=== PATIENT | male | born 1940 | race Caucasian/White ===

== ENCOUNTER 2019-10-02 08:50 | Emergency (ER) | payer OTHER ==
[2019-10-02 09:03] VITALS: BMI 23.7
[2019-10-02] MEDS ORDERED: DEXTROSE 50%-WATER - 25 GM/50 ML VIAL ONE (09:12)
[2019-10-02] MEDS ORDERED: EPINEPHrine 1:10,000 (P-F SYR) 1 MG/10 ML DISP.SYRIN ONE (09:13)
[2019-10-02] MEDS ORDERED: SODIUM BICARBONATE 4.2% 5 MEQ/10 ML DISP.SYRIN IVPUSH ONE ×2 (09:13→10:02)
[2019-10-02] MEDS ORDERED: CALCIUM CHLORIDE 1 GM/10 ML *DISP.SYRIN ONE ×2 (09:13→09:53)
[2019-10-02] MEDS ORDERED: NOREPINEPHRINE BITARTRATE 4,000 MCG in DEXTROSE 5%-WATER - 496 ML IV SCH (09:15)
[2019-10-02] MEDS ORDERED: SODIUM BICARBONATE 8.4% 50 MEQ/50 ML DISP.SYRIN IV ONE (09:19)
[2019-10-02] MEDS ORDERED: NOREPINEPHRINE BITARTRATE 4 MG/4 ML ML IV ONE (09:24)
[2019-10-02] MEDS ORDERED: SODIUM BICARBONATE 8.4% - 50 ML ONE (09:24)
[2019-10-02] MEDS ORDERED: SODIUM CHLORIDE 0.45% 1,000 ML with SODIUM BICARBONATE 8.4% - 50 MEQ IV SCH (09:30)
[2019-10-02] MEDS ORDERED: SODIUM BICARBONATE 8.4% 50 MEQ/50 ML VIAL ONE (10:02)
[2019-10-02 10:13] VITALS: TEMP 91.1
--- NOTE | 2019-10-02 10:17 | PDOC ---
History of Present Illness - General Chief Complaint: Cardiac Arrest Stated Complaint: Cardiac Arrest Time Seen by Provider: 10/02/19 09:18 History Source: EMS, Old Records Exam Limitations: Clinical Condition, Intubated, Unresponsive - History of Present Illness Initial Comments: 10/02/19 09:39 79yo M pmh ESRD, BIBEMS from [facility] in cardiac arrest. Patient found down in asystole, unknown duration, coded for 10 minutes by EMS with 3 Epi, 2 Bicarb, 2 Calcium given, ROSC with wide-complex bradycardia for 20 minutes until pulses lost, additional 10min compressions and 1 additional EPI before arrival. BGM 58 in the field, D10 administered in route, BGM 70 on arrival. Additional Epi, bicarb, and calcium given, airway conformed by Drs. Johnson and Desiree, pulses returned at first pulse check with regular narrow complex with intermittent runs of wide-complex tachycardia, central access in progress, patient with dark stool on rectal temp, FOBT sent. Patient unable to provide history due to clinical condition. Per [facility] paperwork, [facility] ESRD, Afib (on Eliquis), HTN, HLD, DM2, GERD, Epilepsy, Hypothyroidism, prostate cancer, AMS. Past History - Medical History Allergies/Adverse Reactions: Allergies Allergy/AdvReac Type Severity Reaction Status Date / Time No Known Allergies Allergy Verified 10/02/19 09:00 Cancer: Yes (neoplasm prostate) Cardiac Disorders: Yes (a fib) COPD: No Dementia: No (altered mental status) Diabetes: Yes GI Disorders: Yes (gerd) Disorders: Yes (end stage renal failure) HTN: Yes Seizures: Yes (epilepsy) Thyroid Disease: Yes - Psycho-Social/Smoking History Smoking History: Unknown if ever smoked Review of Systems - Review of Systems Able to Perform ROS?: No (Cardiac arrest) *Physical Exam - Vital Signs Last Vital Signs Temp Pulse Resp BP Pulse Ox 15 0/0 L 10/02/19 09:11 10/02/19 08:52 - Physical Exam 10/02/19 10:26 Elderly man, presenting in cardiac arrest, arrived with AR providing compression, unresponsive, intubated NCAT, PERRL, intubated, normal morphologies No pulses, pale, tunneled dialysis catheter in right chest Bilateral breath / vent sounds, symmetric chest rise Abdomen soft, no guarding, soft, non-distended, suprapubic catheter in place draining yellow urine No peripheral edema, no distal pulses Pale skin, no rash apparent, normal genitalia, dark stool apparent on rectal temp Unable to assess MSE, patient unresponsive, unable to cooperate with further exam - no sedation at present ED Treatment Course - LABORATORY CBC & Chemistry Diagram: 10/02/19 10:00 10/02/19 09:32 - RADIOLOGY Radiology Studies Ordered: Category Date Time Status CHEST X-RAY PORTABLE* [RAD] Stat Radiology 10/02/19 09:22 Ordered Medical Decision Making - Critical Care Time Total Critical Care Time (minutes): 140 Critical Care Statement: The care of this patient involved high complexity decision making to prevent further life threatening deterioration of the patient's condition and/or to evaluate & treat vital organ system(s) failure or risk of failure. - Medical Decision Making 10/02/19 11:30 79yo M PMH ESRD, Afib (on Eliquis), BIBEMS from [facility] in cardiac arrest, 20min ROSC in route, 20min CPR with unknown preceding downtime before arrival. EKG concerning for possible inferior / posterior infarct, patient not hemodynamically stable, intubated, with several pulse losses shortly after arrival. Found to have intermittent afib vs wide-complex tachycardia with reported wide-complex bradycardia prior to arrival, dark stool and pale skin concerning for GIB. Suspected metabolic / electrolyte cause in this patient with ESRD, likely acidosis / hyperkalemia vs primary cardiac etiology. - S/p multiple rounds of epi, calcium, bicarb - Levophed drip, bicarb drip - Central line L groin - ET checked, in place - Labs sent - FOBT - EKG with narrow complex QRS, irregular, afib, PVCs, During third arrest, shocks delivered x3 for ventricular tachycardia rhythm, once with bigeminy ROSC again achieved, calcium and bicarbonate appear to have the most profound effect, bicarb drip running with levophed 10/02/19 11:44 - Following discussion with daughter, patient now DNR, does not desire chest tube for R-sided pneumothorax, continuing drips - DNR documented in the chart Laboratory Tests 10/02/19 10/02/19 10/02/19 09:13 09:32 09:32 WBC RBC Hgb Hct MCV MCH MCHC RDW Plt Count MPV Absolute Neuts (auto) Neutrophils % Neutrophils % (Manual) Band Neutrophils % Lymphocytes % Lymphocytes % (Manual) Monocytes % Monocytes % (Manual) Eosinophils % Eosinophils % (Manual) Basophils % Basophils % (Manual) Myelocytes % (Man) Promyelocytes % (Man) Blast Cells % (Manual) Nucleated RBC % Metamyelocytes Hypochromia Platelet Estimate Platelet Comment Polychromasia Poikilocytosis Anisocytosis Microcytosis Macrocytosis Ovalocytes Acanthocytes (Spur) PT with INR INR PTT (Actin FS) VBG pH POC VBG pCO2 POC VBG pO2 VBG HCO3 VBG O2 Sat (Alan) VBG Base Excess Sodium 141 Potassium 6.7 H* Chloride 98 Carbon Dioxide 8 L Anion Gap 35 H BUN 75.9 H Creatinine 7.9 H* Est GFR (CKD-EPI)AfAm 6.84 Est GFR (CKD-EPI)NonAf 5.90 POC Glucometer Random Glucose 80 Lactic Acid > 15.0 H* Calcium 14.9 H* Total Bilirubin 1.0 AST 09893 H ALT 4743 H Alkaline Phosphatase 173 H Creatine Kinase 986 H Creatine Kinase Index 1.2 CK-MB (CK-2) 12.6 H Troponin I 2.25 H* Total Protein 4.8 L Albumin 1.6 L Stool Occult Blood Positive Blood Type Antibody Screen Crossmatch 10/02/19 10/02/19 10/02/19 10:00 10:00 10:00 WBC 27.6 H RBC 2.38 L Hgb 5.6 L* Hct 21.9 L MCV 92.1 MCH 23.5 L MCHC 25.5 L RDW 18.3 H Plt Count 357 MPV 11.7 H Absolute Neuts (auto) 21.8 H Neutrophils % 78.8 Neutrophils % (Manual) 72.3 Band Neutrophils % 4.9 Lymphocytes % 15.4 Lymphocytes % (Manual) 15.8 Monocytes % 4.5 Monocytes % (Manual) 1 L Eosinophils % 0.3 Eosinophils % (Manual) 0.0 Basophils % 1.0 Basophils % (Manual) 0.0 Myelocytes % (Man) 2 Promyelocytes % (Man) 0 Blast Cells % (Manual) 0 Nucleated RBC % 2 H Metamyelocytes 4 H Hypochromia 0 Platelet Estimate Normal Platelet Comment Present Polychromasia 2+ Poikilocytosis 2+ Anisocytosis 2+ Microcytosis 0 Macrocytosis 2+ Ovalocytes 1+ Acanthocytes (Spur) 2+ PT with INR 47.40 H INR 3.96 H PTT (Actin FS) 41.0 H VBG pH POC VBG pCO2 POC VBG pO2 VBG HCO3 VBG O2 Sat (Alan) VBG Base Excess Sodium Potassium Chloride Carbon Dioxide Anion Gap BUN Creatinine Est GFR (CKD-EPI)AfAm Est GFR (CKD-EPI)NonAf POC Glucometer Random Glucose Lactic Acid Calcium Total Bilirubin AST ALT Alkaline Phosphatase Creatine Kinase Creatine Kinase Index CK-MB (CK-2) Troponin I Total Protein Albumin Stool Occult Blood Blood Type O POSITIVE Antibody Screen Negative Crossmatch See Detail 10/02/19 10/02/19 10/02/19 10:03 11:07 11:20 WBC RBC Hgb Hct MCV MCH MCHC RDW Plt Count MPV Absolute Neuts (auto) Neutrophils % Neutrophils % (Manual) Band Neutrophils % Lymphocytes % Lymphocytes % (Manual) Monocytes % Monocytes % (Manual) Eosinophils % Eosinophils % (Manual) Basophils % Basophils % (Manual) Myelocytes % (Man) Promyelocytes % (Man) Blast Cells % (Manual) Nucleated RBC % Metamyelocytes Hypochromia Platelet Estimate Platelet Comment Polychromasia Poikilocytosis Anisocytosis Microcytosis Macrocytosis Ovalocytes Acanthocytes (Spur) PT with INR INR PTT (Actin FS) VBG pH 6.842 L* POC VBG pCO2 39.7 POC VBG pO2 41.1 VBG HCO3 6.7 L VBG O2 Sat (Alan) 42.5 L VBG Base Excess -24.9 L Sodium Potassium Chloride Carbon Dioxide Anion Gap BUN Creatinine Est GFR (CKD-EPI)AfAm Est GFR (CKD-EPI)NonAf POC Glucometer 194 Random Glucose Lactic Acid Calcium Total Bilirubin AST ALT Alkaline Phosphatase Creatine Kinase Creatine Kinase Index CK-MB (CK-2) Troponin I Total Protein Albumin Stool Occult Blood Blood Type O POSITIVE Antibody Screen Crossmatch 10/02/19 12:05 Daughter at patient's bedside 10/02/19 13:03 Patient passed, no cardiac activity on POCUS: on 10/02/2019 at 12:29 Call placed to [facility] Dispo: 10/02/19 13:39 PCP, Family, [facility], [place] notified ME cleared case, Watch Repair Person Saxena, Case #[id number] Discharge - Discharge Information Problems reviewed: Yes Clinical Impression/Diagnosis: Cardiac arrest Chronic renal failure Qualifiers: Chronic kidney disease stage: unspecified stage Qualified Code(s): N18.9 - Chronic kidney disease, unspecified Anemia Qualifiers: Anemia type: unspecified type Qualified Code(s): D64.9 - Anemia, unspecified Condition: Critical Disposition: - Admission No - Follow up/Referral Referrals: Senait John MD [Primary Care Provider] - - Patient Discharge Instructions - Post Discharge Activity
[2019-10-02 10:29] LABS: EOS % 0.3 % (0-4.5); HEMATOCRIT 21.9 % (35.4-49); LYMPH % 15.4 % (8-40); MCH 23.5 pg (25.7-33.7); MCHC 25.5 g/dl (32.0-35.9); MEAN CELL VOLUME 92.1 fl (80-96); MEAN PLT VOLUME 11.7 fl (7.5-11.1); MONO % 4.5 % (3.8-10.2); NEUT % 78.8 % (42.8-82.8); PLATELET COUNT 357 K/MM3 (134-434); RBC 2.38 M/mm3 (4.00-5.60); RDW 18.3 % (11.9-15.9); WHITE BLOOD COUNT 27.6 K/mm3 (4.0-10.0)
[2019-10-02 10:32] LABS: HEMOGLOBIN 5.6 GM/dL (11.7-16.9)
--- NOTE | 2019-10-02 10:36 | PDOC ---
Attending Attestation - Resident Resident Name: JesúsDemetrisAnatoliy - ED Attending Attestation I have performed the following: I have examined & evaluated the patient, The case was reviewed & discussed with the resident, I agree w/resident's findings & plan - HPI HPI: 10/02/19 10:31 79y/o M h/o CRF, afib biba from [facility] after found unresponsive in cardiac arrest. Pt last seen normal last night, found this morning and EMS activated. Pt was in various rhythms including asystole, vfib, wide complex tachy. Given epi/ca/hco3 and one defib in field with ROSC. Pt arrived intubated and unresponsive without sedating meds, variable narrow and wide complex irregular tachycardia. See code sheet for details, obtained ROSC after two rounds of coding, seemingly most responsive to bicarb/ca. - Physicial Exam PE: 10/02/19 10:36 rectal temp 97.1, glucose recorded and normal unresponsive, intubated, pale skin pupils fixed at 2mm heart irregular, coarse lung sounds R chest dialysis catheter in place abd soft, spc in place, melena on rectal exam neuro/psych limited - Critical Care Time Total Critical Care Time: 140 Critical Care Statement: The care of this patient involved high complexity decision making to prevent further life threatening deterioration of the patient's condition and/or to evaluate & treat vital organ system(s) failure or risk of failure. - Medical Decision Making 10/02/19 10:40 79y/o M CRF, afib, presents unresponsive with cardiac arrest. coded with ROSC x3. ? metabolic acidemic/hyperkalemic, ? primary cardiac, ? infectious. see code sheets for details, pt alternated between asystole and vfib requiring defib along with multiple rounds of epi, ca, bicarb, d50. labs ekg, cxr vent management pressors, bicarb drip icu admission eventually contacted daughter, who states continuing resuscitation efforts in this setting would not be consistent with patient's wishes. Will make DNR and discuss further details with family. 10/02/19 10:56 leukocytosis 27, anemia 5.6 concerning for GI bleed with dark occult positive stool chem pending. ekg with inf/posterior ischemia, ? primary v. 2/2 resuscitation. on levo/bicarb drip, PRBC ordered, DNR per daughter who is en route. 10/02/19 12:15 moderate ptx noted on cxr, but pt's daughter declined intervention of bedside pigtail catheter. agrees with prbc and continuing bicarb/levo drips. pt still DNR, remains intubated. no escalation of care of hereon out, daughter at bedside. pt becoming more bradycardic and hypotensive. 10/02/19 12:32 pt became progressive bradycardic and hypotensive, no escalation per daughter's wishes. rhythm went to asystole, no cardiac activity confirmed on bedside u/s, pt pronounced at 12:29pm. Daughter at bedside and notified concurrently. Heart Score/ECG Review #1 ECG reviewed & interpreted by me at: 09:03 10/02/19 10:48 wide complex regular tachy at 136 #2 ECG reviewed & interpreted by me at: 09:06 General ECG Interpretation: Sinus Rhythm (1mm MIRANDA isolated to lead with ST depression V2-V6), Normal Rate (88), Normal Intervals (qtc 452) Discharge - Discharge Information Problems reviewed: Yes Clinical Impression/Diagnosis: Cardiac arrest Anemia Qualifiers: Anemia type: unspecified type Qualified Code(s): D64.9 - Anemia, unspecified Chronic renal failure Qualifiers: Chronic kidney disease stage: unspecified stage Qualified Code(s): N18.9 - Chronic kidney disease, unspecified Condition: Critical - Follow up/Referral Referrals: Senait John MD [Primary Care Provider] - - Patient Discharge Instructions - Post Discharge Activity
[2019-10-02 10:53] LABS: INR 3.96 (0.83-1.09); PROTHROMBIN TIME (PATIENT) 47.4 SEC (9.7-13.0)
[2019-10-02 11:01] LABS: ALBUMIN 1.6 g/dl (3.4-5.0); BLOOD UREA NITROGEN 75.9 mg/dL (7-18); TOT PROT 4.8 g/dl (6.4-8.2)
[2019-10-02 11:13] VITALS: BP 70/57; PULSE 67
[2019-10-02 11:15] LABS: ANISOCYTOSIS 2+; MACROCYTOSIS 2+; OVALOCYTE 1+; PLATELET ESTIMATE NORMAL
[2019-10-02 11:19] LABS: VENOUS BASE EXCESS -24.9 mmol/L (-2-2); VENOUS O2 SATURATION 42.5 % (70-80); VENOUS PCO2 39.7 mmHg (38-52)
[2019-10-02 11:34] LABS: VENOUS PH 6.842 (7.310-7.410)
[2019-10-02 11:35] LABS: CREATININE 7.9 mg/dL (0.55-1.3)
[2019-10-02 11:36] LABS: POTASSIUM 6.7 mmol/L (3.5-5.1)
[2019-10-02 11:37] LABS: CALCIUM 14.9 mg/dL (8.5-10.1)
--- NOTE | 2019-10-02 12:51 | EKG ---
Test Reason : Blood Pressure : / mmHG Vent. Rate : 136 BPM Atrial Rate : 136 BPM P-R Int : 144 ms QRS Dur : 114 ms QT Int : 372 ms P-R-T Axes : 000 237 083 degrees QTc Int : 559 ms VENTRICULAR TACHYCARDIA ABNORMAL ECG Confirmed by MD FRANCIS, LEONORA ([id number]) on 10/02/2019 12:50:52 PM Referred By: Confirmed By:LEONORA BLANCO MD
--- NOTE | 2019-10-04 14:56 | EKG ---
Test Reason : Blood Pressure : / mmHG Vent. Rate : 088 BPM Atrial Rate : 088 BPM P-R Int : 288 ms QRS Dur : 126 ms QT Int : 374 ms P-R-T Axes : 000 077 206 degrees QTc Int : 452 ms SINUS RHYTHM WITH 1ST DEGREE A-V BLOCK NON-SPECIFIC INTRA-VENTRICULAR CONDUCTION BLOCK MARKED ST ABNORMALITY, POSSIBLE ANTERIOR SUBENDOCARDIAL INJURY ABNORMAL ECG WHEN COMPARED WITH ECG OF 02-OCT-2019 09:03, SIGNIFICANT CHANGES HAVE OCCURRED Confirmed by ASHLEY GREY MD ([id number]) on 10/04/2019 2:56:27 PM Referred By: Confirmed By:ASHLEY GREY MD
== END 2019-10-02 12:30 | disposition expired ==
LOC: JER 08:50
PROC: 3E033GC Introduction of Other Therapeutic Substance into Peripheral Vein, Percutaneous Approach (ICD-10-PCS; principal; 2019-10-02)
DX: I46.9 Cardiac arrest, cause unspecified (principal)
CPT/HCPCS: 36415; 71045-TC-FY; 80053; 82272; 82550; 82553; 82803; 82962; 83605; 84484; 85025; 85610; 85730; 86850; 86900; 86901; 86922; 87040; 87186; 93005; 93010; 99291; 99292